=== PATIENT | female | born 1995 | race Caucasian/White ===

== ENCOUNTER 2018-12-22 16:17 | Emergency (ER) | payer MEDICAID, OTHER ==
[~2018-12-22] VITALS: Ht 160 cm; Wt 102.0 kg
[2018-12-22 16:24] VITALS: BP 158/78
[2018-12-22] MEDS ORDERED: PENI250T2 PO (18:09)
[2018-12-22] MEDS ORDERED: IBUP-1984 PO (18:09)
== END 2018-12-22 18:26 | disposition home or self-care (01) ==
LOC: ER 16:18
DX: K08.89 Other specified disorders of teeth and supporting structures (principal); K01.1 Impacted teeth; F17.200 Nicotine dependence, unspecified, uncomplicated; Z79.899 Other long term (current) drug therapy
CPT/HCPCS: 99283

== ENCOUNTER → 2020-10-31 | Emergency (ER) | payer MEDICAID, OTHER ==
[~2020-10-31] VITALS: Ht 160 cm; Wt 115.0 kg
[~2020-10-31] MED LIST: PENI500T2 PO
[2020-10-31 08:19] VITALS: BP 145/90
== END | disposition home or self-care (01) ==
LOC: ER 12:08
DX: K08.89 Other specified disorders of teeth and supporting structures (principal)
CPT/HCPCS: 99283

== ENCOUNTER 2020-11-28 09:29 | Emergency (ER) | payer MEDICAID ==
[~2020-11-28] VITALS: Ht 160 cm; Wt 108.3 kg
[2020-11-28 09:37] VITALS: BP 122/70
[2020-11-28] MEDS ORDERED: PENI500T2 PO (09:49)
[2020-11-28] MEDS ORDERED: AMOX-117 PO (09:49)
== END 2020-11-28 09:58 | disposition home or self-care (01) ==
LOC: ER 09:29
DX: K04.7 Periapical abscess without sinus (principal)
CPT/HCPCS: 99283